=== PATIENT | female | born 1950 | race Caucasian/White ===

== ENCOUNTER → 2017-04-25 | Outpatient (CLI) | payer BC ==
[~2017-04-25] MED LIST: ACT/35 PO; ADVIN50/60 INH; ALBU1AER9 INH; ALBU1NEB10 INH; BENA10TA10 PO; IBUP-1428 PO; INDSR/120 PO; OXGN; SUMA100T16 PO; TIOTCAP INH
--- NOTE | 2017-04-26 13:43 | MAMMOGRAPHY REPORT ---
BILATERAL DIGITAL SCREENING MAMMOGRAM TOMOSYNTHESIS WITH CAD: 04/25/2017 CLINICAL HISTORY: Routine screening examination. TECHNIQUE: Breast tomosynthesis in addition to standard 2D mammography was performed. Current study was also evaluated with a Computer Aided Detection (CAD) system. COMPARISON: Comparison is made to exams dated: 07/08/2015 mammogram, 12/26/2013 ultrasound, 12/26/2013 mammogram, 03/21/2013 mammogram, 01/03/2012 mammogram, and 01/12/2011 mammogram - [facility]. BREAST COMPOSITION: There are scattered areas of fibroglandular density in both breasts. FINDINGS: There is a possible small area of architectural distortion in the subareolar anterior left breast for which additional spot compression tomosynthesis views and possible ultrasound are recomme nded. There are scattered benign round and coarse calcifications bilaterally. Stable biopsy marker clip in the lower inner anterior left breast. No other suspicious mass, architectural distortion or cluster of microcalcifications is seen. IMPRESSION: ACR BI-RADS CATEGORY 0: INCOMPLETE EVALUATION: NEED ADDITIONAL IMAGING EVALUATION The possible small area of architectural distortion in the left subareolar breast needs additional ev aluation. The patient will be called to schedule an appointment. Approximately 10% of breast cancers are not detected with mammography. A negative mammographic report should not delay biopsy if a clinically suggestive mass is present. Xiomara Vazquez M.D. ay/:04/25/2017 15:56:29 Backbreaker: Maria Luisa RAMIRES(Barrera)(M), [facility] letter sent: Addl Imaging 0 BI-RADS Code: ACR BI-RADS Category 0: Incomplete Evaluation: Need Additional Imaging Evaluation
== END | disposition home or self-care (01) ==
LOC: C.MAMM 13:40
PROVIDERS: ATTEND Family Medicine
DX: Z12.31 Encounter for screening mammogram for malignant neoplasm of breast (principal); N64.89 Other specified disorders of breast

== ENCOUNTER → 2017-05-05 | Outpatient (CLI) | payer BC ==
--- NOTE | 2017-05-05 13:38 | MAMMOGRAPHY REPORT ---
UNILATERAL LEFT DIGITAL DIAGNOSTIC MAMMOGRAM TOMOSYNTHESIS AND TARGETED LEFT ULTRASOUND: 05/05/2017 CLINICAL HISTORY: Callback from screening mammogram for possible left breast architectural distortion . TECHNIQUE: Breast tomosynthesis in addition to standard 2D mammography was performed. Spot compress ion left CC and MLO 2-D and tomosynthesis images were obtained. COMPARISON: Comparison is made to exams dated: 04/25/2017 mammogram, 12/26/2013 ultrasound, 12/26/2013 mammogram, 03/21/2013 ultrasound, 03/21/2013 mammogram, and 01/03/2012 ultrasound - [facility]. BREAST COMPOSITION: There are scattered areas of fibroglandular density in the left breast. FINDINGS: Spot compression views demonstrate an asymmetry within the left retroareolar breast middle depth on the cc view. A few adjacent lines are seen in this region which likely represent Brooks's ligaments, without clear architectural distortion seen. No correlate is seen on the MLO views. When compared to prior exams, the tissue in this region appears similar to some of the prior exams on 2-D images including the cc view from the December 2010 exam, suggesting that this likely represents sara l fibroglandular tissue. No suspicious masses noted on the additional images. Targeted ultrasound was performed of the left 12:00, 6:00, and subareolar breast in the region of the questionable distortion seen on one view only. No suspicious masses or other suspicious sonographic abnormalities are evident. Multiple cysts were seen, including 2 adjacent anechoic benign simple cy sts in the left 12:00 breast, 1-2 cm from the nipple, one measuring 3 mm and the other measuring 4 mm . Additionally, there is a round circumscribed cyst with some echogenic material seen within it jesus uring 4 mm in the left 12:00 periareolar region. An oval benign cyst with a few thin internal septat ions measuring 5 x 4 mm is seen within the left 6:00 breast, 2 cm from the nipple. IMPRESSION: ACR-BI-RADS CATEGORY 3: PROBABLY BENIGN, TARGETED ULTRASOUND ACR-BI-RADS CATEGORY 3: PRO BABLY BENIGN Asymmetry in the left breast on the cc view appears similar to prior exams including the 2010 exam, w ithout clear associated architectural distortion noted on the additional views. No suspicious corres ponding sonographic abnormality is evident. Findings are probably benign and likely represent normal fibroglandular tissue. Recommend follow-up diagnostic tomosynthesis mammograms and possible ultraso und of the left breast in 6 months to confirm stability. The patient has been verbally notified of the results. Approximately 10% of breast cancers are not detected with mammography. A negative mammographic report should not delay biopsy if a clinically suggestive mass is present. Arianne Solis M.D. ah/:05/05/2017 11:51:09 Household Coordinator: Maria Luisa Gonzalez, [facility] letter sent: Follow Up Recommended 3 BI-RADS Code: ACR-BI-RADS Category 3: Probably Benign Ultrasound BI-RADS: ACR-BI-RADS Category 3: Pr obably Benign
== END | disposition home or self-care (01) ==
LOC: C.MAMM 08:52
PROVIDERS: ATTEND Family Medicine
DX: N64.89 Other specified disorders of breast (principal)